=== PATIENT | female | born 1955 | race Caucasian/White ===

== ENCOUNTER 2021-05-13 07:52 | Day surgery (SDC) | payer MEDICARE, BC, OTHER ==
[~2021-05-13] VITALS: Ht 165.1 cm; Wt 84.6 kg
[~2021-05-13 07:52] MED LIST: Cyclobenzaprine5 MG; ELIQUIS5 M2 PO; Flecainide Acet50 MG PO; Flonase 0.05% N16 GM; MECL25 PO; METO25 PO; THYR60 PO
--- NOTE | 2021-05-13 10:24 | NUR ---
05/13/21 1024 Crissy Thornton TIME OUT AND SITE CHECK FOR RIGHT ISB WITH DR REDDING.
== END 2021-05-13 13:15 | disposition home or self-care (01) ==
LOC: ORSCSDS 07:52
PROVIDERS: Orthopaedic Surgery
PROC: 0LQ14ZZ Repair Right Shoulder Tendon, Percutaneous Endoscopic Approach (ICD-10-PCS; principal; 2021-05-13 09:30)
PROC: 0PB94ZZ Excision of Right Clavicle, Percutaneous Endoscopic Approach (ICD-10-PCS; principal; 2021-05-13 09:30)
PROC: 0RNJ4ZZ Release Right Shoulder Joint, Percutaneous Endoscopic Approach (ICD-10-PCS; principal; 2021-05-13 09:30)
DX: M75.111 Incomplete rotator cuff tear or rupture of right shoulder, not specified as traumatic (principal); M75.21 Bicipital tendinitis, right shoulder; M75.41 Impingement syndrome of right shoulder; M19.011 Primary osteoarthritis, right shoulder; I48.0 Paroxysmal atrial fibrillation; Z79.01 Long term (current) use of anticoagulants; Z87.891 Personal history of nicotine dependence; Z79.899 Other long term (current) drug therapy; R42 Dizziness and giddiness
CPT/HCPCS: C1713; J0171; J0690; J1100; J1885; J2250; J2405; J2704; J2710; J3010; J7120